=== PATIENT | male | born 1955 | race Hispanic/Latino ===

== ENCOUNTER 2021-01-03 03:37 | Emergency (ER) | payer BC ==
[~2021-01-03] VITALS: Ht 165.1 cm; Wt 80.7 kg
[2021-01-03] MEDS ORDERED: SODIUM CHLORIDE 0.9% 1000ML 1,000 ML IV STA (03:57)
[2021-01-03 04:24] LABS: BASOPHILS # (AUTO) 0.1 (0.0-0.1); BASOPHILS % 0.6 % (0.0-1.0); EOSINOPHILS # (AUTO) 0.1 (0.0-0.4); EOSINOPHILS % 0.7 % (0.0-6.0); HEMOGLOBIN 13.6 g/dL (14.0-18.0); LYMPHOCYTES # (AUTO) 1.5 (1.0-3.2); LYMPHOCYTES % 12.7 % (18.0-39.1); MEAN CORPUSCULAR HEMOGLOBIN 31.3 pg (28-32); MEAN CORPUSCULAR HGB CONC 33.2 g/dL (31-35); MEAN CORPUSCULAR VOLUME 94.5 fL (81-99); MONOCYTES # (AUTO) 0.5 (0.2-0.8); MONOCYTES % 3.9 % (4.4-11.3); NEUTROPHILS # (AUTO) 9.8 (2.1-6.9); NEUTROPHILS % 81.7 % (38.7-80.0); PLATELET COUNT 274 x10e3/uL (140-360); RED BLOOD COUNT 4.34 x10e6/uL (4.3-5.7); RED CELL DISTRIBUTION WIDTH 15.2 % (11.7-14.4)
[2021-01-03 04:37] LABS: ALANINE AMINOTRANSFERASE 30 IU/L (0-55); ALBUMIN 3.2 g/dL (3.5-5.0); ALBUMIN/GLOBULIN RATIO 0.7 (0.8-2.0); ALKALINE PHOSPHATASE 107 IU/L (40-150); ANION GAP 18.1 mmol/L (8-16); BLOOD UREA NITROGEN < 5 mg/dL (7-26); CARBON DIOXIDE 21 mmol/L (22-29); CHLORIDE 99 mmol/L (98-107); CREATININE, SERUM 0.76 mg/dL (0.72-1.25); EST GLOMERULAR FILTRATION RATE 103 ML/MIN (60-); GLUCOSE 189 mg/dL (74-118); POTASSIUM 4.1 mmol/L (3.5-5.1); SODIUM 134 mmol/L (136-145)
[2021-01-03 04:53] LABS: BUN/CREATININE RATIO 7 (6-25)
[2021-01-03] MEDS ORDERED: CASIRIVIMAB/IMDEVIMAB 10 ML in SODIUM CHLORIDE 0.9% 100 ML IV ONE (05:30)
[2021-01-03] MEDS ORDERED: PROAIR HFA INH8.5 GM IH (06:07)
== END 2021-01-03 06:26 | disposition home or self-care (01) ==
LOC: ER 03:50
DX: U07.1 COVID-19 (principal); Z88.0 Allergy status to penicillin; E66.9 Obesity, unspecified; Z68.29 Body mass index [BMI] 29.0-29.9, adult
CPT/HCPCS: 36415; 71045; 80053; 83518; 85025; 87070; 87400; 99284; J7030; J7050; U0002

== ENCOUNTER 2021-02-12 18:06 | Inpatient (IN) | payer BC ==
[~2021-02-12] VITALS: Ht 165.1 cm; Wt 76.2 kg
[~2021-02-12 18:06] MED LIST: PROAIR HFA INH8.5 GM IH
[2021-02-12] MEDS ORDERED: SODIUM CHLORIDE 0.9% 1000ML 1,000 ML IV STA (18:13)
[2021-02-12 18:26] LABS: BASOPHILS % 0.3 % (0.0-1.0); EOSINOPHILS % 0.1 % (0.0-6.0); HEMATOCRIT 45.3 % (38.2-49.6); HEMOGLOBIN 15.7 g/dL (14.0-18.0); LYMPHOCYTES % 17.1 % (18.0-39.1); MEAN CORPUSCULAR HEMOGLOBIN 31.4 pg (28-32); MEAN CORPUSCULAR HGB CONC 34.7 g/dL (31-35); MEAN CORPUSCULAR VOLUME 90.6 fL (81-99); MONOCYTES # (AUTO) 1.1 (0.2-0.8); MONOCYTES % 9.7 % (4.4-11.3); NEUTROPHILS # (AUTO) 8.5 (2.1-6.9); NEUTROPHILS % 72.5 % (38.7-80.0); PLATELET COUNT 233 x10e3/uL (140-360); RED CELL DISTRIBUTION WIDTH 12.1 % (11.7-14.4)
[2021-02-12 18:43] LABS: ALBUMIN 3.2 g/dL (3.5-5.0); ALBUMIN/GLOBULIN RATIO 0.6 (0.8-2.0); ANION GAP 19.9 mmol/L (8-16); CALCIUM 8.4 mg/dL (8.4-10.2); CREATININE, SERUM 0.83 mg/dL (0.72-1.25); POTASSIUM 3.9 mmol/L (3.5-5.1)
[2021-02-12 18:49] LABS: CREATINE KINASE MB 4.7 ng/mL (0-5.0)
[2021-02-12] MEDS ORDERED: ONDANSETRON HCL INJ 2MG/ML 2ML 2 MG/ML VIAL IV PRN (19:30)
[2021-02-12] MEDS ORDERED: Morphine 4mg Syringe 4 MG/ML INJ IV PRN (19:45)
[2021-02-12 21:30] VITALS: BP 128/73
[2021-02-12 23:00] VITALS: BP 132/62
[2021-02-12] MEDS: SODIUM CHLORIDE 0.9% 1000ML 1,000 ML IV SCH (23:42)
[2021-02-12] MEDS ORDERED: THIAMINE HCL INJ 100 MG/ML 2ML VIAL IM ONE (23:45)
[2021-02-13 00:06] VITALS: BP 128/84
[2021-02-13] MEDS: CHLORDIAZEPOXIDE HCL 25 MG CAP PO SCH ×4 (00:26→17:11)
[2021-02-13 02:12] LABS: CREATINE KINASE MB 7.4 ng/mL (0-5.0)
[2021-02-13] MEDS: SODIUM CHLORIDE 0.9% 1000ML 1,000 ML IV SCH ×2 (03:49→09:17)
[2021-02-13 04:00] VITALS: BP 143/90
[2021-02-13] MEDS ORDERED: PREDNISONE20 MG PO (04:09)
[2021-02-13] MEDS ORDERED: LISINOPRIL-HCT1 EAC2 PO (04:09)
[2021-02-13] MEDS ORDERED: PREDNISONE10 MG PO (04:09)
[2021-02-13] MEDS ORDERED: METFORMIN HCL1000 MG PO (04:09)
[2021-02-13] MEDS ORDERED: SIMVASTATIN40 MG PO (04:09)
[2021-02-13 05:22] LABS: BASOPHILS % 0.4 % (0.0-1.0); EOSINOPHILS # (AUTO) 0.1 (0.0-0.4); EOSINOPHILS % 1.5 % (0.0-6.0); HEMOGLOBIN 14.2 g/dL (14.0-18.0); LYMPHOCYTES # (AUTO) 1.2 (1.0-3.2); LYMPHOCYTES % 16.4 % (18.0-39.1); MEAN CORPUSCULAR HEMOGLOBIN 31.6 pg (28-32); MEAN CORPUSCULAR HGB CONC 34.6 g/dL (31-35); MEAN CORPUSCULAR VOLUME 91.3 fL (81-99); MONOCYTES # (AUTO) 1.1 (0.2-0.8); MONOCYTES % 14.3 % (4.4-11.3); NEUTROPHILS # (AUTO) 5.1 (2.1-6.9); NEUTROPHILS % 66.7 % (38.7-80.0); PLATELET COUNT 211 x10e3/uL (140-360); RED BLOOD COUNT 4.49 x10e6/uL (4.3-5.7); RED CELL DISTRIBUTION WIDTH 12.2 % (11.7-14.4)
[2021-02-13 05:50] LABS: CREATINE KINASE MB 6.4 ng/mL (0-5.0)
[2021-02-13 06:05] LABS: ALBUMIN 2.7 g/dL (3.5-5.0); ALBUMIN/GLOBULIN RATIO 0.6 (0.8-2.0); ANION GAP 14.6 mmol/L (8-16); CALCIUM 7.8 mg/dL (8.4-10.2); CREATININE, SERUM 0.73 mg/dL (0.72-1.25); POTASSIUM 3.6 mmol/L (3.5-5.1)
[2021-02-13 07:50] VITALS: BP 141/91
[2021-02-13 11:07] VITALS: BP 138/83
[2021-02-13 13:12] LABS: CHOL/HDL RATIO 1.6 (3.9-4.7)
[2021-02-13 14:28] LABS: CREATINE KINASE MB 3.6 ng/mL (0-5.0)
[2021-02-13 15:42] VITALS: BP 153/84
[2021-02-13] MEDS ORDERED: ONDANSETRON HCL 4 MG ORAL DISINTEGRATING TAB PO PRN (17:00)
[2021-02-13 20:00] VITALS: BP_SYST 146; BP_SYST 153; BP_DIAS 82; BP_DIAS 84
[2021-02-14] VITALS: BP 143/96
[2021-02-14 04:00] VITALS: BP 137/92
[2021-02-14 05:30] LABS: ANION GAP 14.9 mmol/L (8-16); BLOOD UREA NITROGEN < 5 mg/dL (7-26); CALCIUM 7.8 mg/dL (8.4-10.2); CARBON DIOXIDE 21 mmol/L (22-29); CHLORIDE 100 mmol/L (98-107); CREATININE, SERUM 0.64 mg/dL (0.72-1.25); EST GLOMERULAR FILTRATION RATE 126 ML/MIN (60-); GLUCOSE 105 mg/dL (74-118); SODIUM 133 mmol/L (136-145)
[2021-02-14] MEDS: CHLORDIAZEPOXIDE HCL 25 MG CAP PO SCH ×3 (05:53→12:19)
[2021-02-14 05:55] LABS: BUN/CREATININE RATIO 8 (6-25)
[2021-02-14 05:56] LABS: POTASSIUM 2.9 mmol/L (3.5-5.1)
[2021-02-14] MEDS ORDERED: POTASSIUM CHLORIDE 20 MEQ TAB CR PO STA (06:02)
[2021-02-14 08:00] VITALS: BP 150/91
[2021-02-14 08:05] VITALS: BP 150/91
[2021-02-14] MEDS ORDERED: POTASSIUM CHLORIDE 20 MEQ TAB CR PO ONE (08:30)
[2021-02-14] MEDS ORDERED: METOPROLOL SUCCINATE 25 MG TAB XL PO SCH (09:45)
[2021-02-14 11:58] VITALS: BP 140/94
[2021-02-14] MEDS ORDERED: TOPROL XL25 MG PO (14:25)
[2021-02-14 15:44] VITALS: BP 126/82
[2021-02-14] MEDS ORDERED: SIMVASTATIN 40 MG TAB PO SCH (21:00)
== END 2021-02-14 16:05 | disposition home or self-care (01) | DRG 641 ==
LOC: ER 18:11 → ERHOLD 19:25 → MED/SURG 20:47
PROVIDERS: ADMIT Internal Medicine; ATTEND Internal Medicine
DX: E87.1 Hypo-osmolality and hyponatremia (principal); F10.130 Alcohol abuse with withdrawal, uncomplicated; R07.9 Chest pain, unspecified; R53.1 Weakness; R51.9 Headache, unspecified; E11.9 Type 2 diabetes mellitus without complications; I10 Essential (primary) hypertension; Z88.0 Allergy status to penicillin; Z20.822 Contact with and (suspected) exposure to COVID-19; R07.89 Other chest pain; E66.01 Morbid (severe) obesity due to excess calories; F10.11 Alcohol abuse, in remission; E87.6 Hypokalemia; Z68.28 Body mass index [BMI] 28.0-28.9, adult; Z79.4 Long term (current) use of insulin
CPT/HCPCS: 36415; 70450; 71045; 80048; 80053; 80061; 82550; 82553; 82948; 83036; 83880; 84132; 84295; 84484; 85025; 93005; 93306; 94799; 99284; J3411; J7030; U0002

== ENCOUNTER 2021-03-09 08:06 | Inpatient (IN) | payer BC ==
[~2021-03-09] VITALS: Ht 165.1 cm; Wt 76.2 kg
[~2021-03-09 08:06] MED LIST changes: +LISINOPRIL-HCT1 EAC2 PO; +METFORMIN HCL1000 MG PO; +PREDNISONE10 MG PO; +PREDNISONE20 MG PO; +SIMVASTATIN40 MG PO; +TOPROL XL25 MG PO
[2021-03-09] MEDS ORDERED: Morphine 4mg Syringe 4 MG/ML INJ IV ONE (08:22)
[2021-03-09] MEDS ORDERED: ONDANSETRON HCL INJ 2MG/ML 2ML 2 MG/ML VIAL IV ONE (08:22)
[2021-03-09] MEDS ORDERED: SODIUM CHLORIDE 0.9% 1000ML 1,000 ML IV STA ×2 (08:22→10:13)
[2021-03-09 08:46] LABS: BASOPHILS % 0.2 % (0.0-1.0); EOSINOPHILS % 0.2 % (0.0-6.0); HEMATOCRIT 42.1 % (38.2-49.6); HEMOGLOBIN 14.4 g/dL (14.0-18.0); LYMPHOCYTES # (AUTO) 1.4 (1.0-3.2); LYMPHOCYTES % 8.9 % (18.0-39.1); MEAN CORPUSCULAR HEMOGLOBIN 31.2 pg (28-32); MEAN CORPUSCULAR HGB CONC 34.2 g/dL (31-35); MEAN CORPUSCULAR VOLUME 91.3 fL (81-99); MONOCYTES # (AUTO) 1.3 (0.2-0.8); MONOCYTES % 8.7 % (4.4-11.3); NEUTROPHILS # (AUTO) 12.3 (2.1-6.9); NEUTROPHILS % 81.5 % (38.7-80.0); PLATELET COUNT 216 x10e3/uL (140-360); RED BLOOD COUNT 4.61 x10e6/uL (4.3-5.7); RED CELL DISTRIBUTION WIDTH 12.1 % (11.7-14.4)
[2021-03-09 09:00] LABS: CLARITY,URINE CLEAR (CLEAR); COLOR,URINE YELLOW (YELLOW); INR 0.96; KETONES,URINE TRACE (NEGATIVE); LEUKOCYTE ESTERASE ,URINE NEGATIVE (NEGATIVE); NITRITE,URINE NEGATIVE (NEGATIVE); PROTEIN,URINE DIPSTICK 1+ (NEGATIVE); PROTHROMBIN TIME 13.6 seconds (11.9-14.5); URINE UROBILINOGEN 0.2 mg/dL (0.2 - 1)
[2021-03-09 09:01] LABS: PARTIAL THROMBOPLASTIN TIME 28.1 seconds (23.8-35.5)
[2021-03-09 09:10] LABS: RBC,URINE 0-5 /HPF (0-5); WBC,URINE (MAN) 0-5 /HPF (0-5)
[2021-03-09 09:11] LABS: ALBUMIN 2.9 g/dL (3.5-5.0); ALBUMIN/GLOBULIN RATIO 0.6 (0.8-2.0); ANION GAP 17.4 mmol/L (8-16); CALCIUM 8.4 mg/dL (8.4-10.2); CREATININE, SERUM 0.89 mg/dL (0.72-1.25); MAGNESIUM 1.5 MG/DL (1.3-2.1); POTASSIUM 3.4 mmol/L (3.5-5.1)
[2021-03-09 09:17] LABS: CREATINE KINASE MB 0.7 ng/mL (0-5.0)
[2021-03-09] MEDS ORDERED: PIPERACILLIN/TAZOBACTAM 3.375 GM in SODIUM CHLORIDE 0.9% 50ML 50 ML IV ONE (10:15)
[2021-03-09] MEDS ORDERED: LEVOFLOXACIN 500MG/D5W 100ML 100 ML IV ONE (10:30)
[2021-03-09] MEDS ORDERED: SODIUM CHLORIDE 0.9% 50ML 50 ML ONE (10:33)
[2021-03-09] MEDS ORDERED: IOPAMIDOL 370 MG/ML 200 ML INFUS..BTL INJ ONE (10:33)
[2021-03-09 10:46] LABS: BAND NEUTROPHILS % (MANUAL) 3 %; LYMPHOCYTES % (MANUAL) 5 % (19-48); MONOCYTES % (MANUAL) 4 % (3.4-9.0); NEUTROPHILS % (MANUAL) 81 % (40-74); PLATELET ESTIMATE ADEQUATE; PLATELET MORPHOLOGY COMMENT NORMAL; RBC MORPHOLOGY COMMENT NORMAL
[2021-03-09] MEDS ORDERED: METHYLPREDNISOLONE SOD SUCC 125 MG/2ML VIAL IV STA (12:10)
[2021-03-09] MEDS ORDERED: METRONIDAZOLE 500MG/NS 100ML 100 ML IV SCH (12:15)
[2021-03-09] MEDS: KCL 20MEQ/.9 SOD CHL 1,000 ML IV SCH ×2 (13:40→20:44)
[2021-03-09] MEDS: METRONIDAZOLE 500 MG TAB PO SCH ×2 (14:04→20:35)
[2021-03-09 16:00] VITALS: BP 137/75
[2021-03-09 17:35] VITALS: BP 137/75
[2021-03-09 20:09] VITALS: BP 104/67
[2021-03-09 20:30] VITALS: BP 104/67
[2021-03-10] VITALS (10 sets, daily range): BP systolic 124–163; BP diastolic 74–92
[2021-03-10] MEDS: METRONIDAZOLE 500 MG TAB PO SCH ×5 (00:45→23:30)
[2021-03-10] MEDS ORDERED: METHYLPREDNISOLONE SOD SUCC 40 MG/ML VIAL 1ML IV STA (01:10)
[2021-03-10] MEDS ORDERED: MESALAMINE 400 MG CAP PO STA (01:17)
[2021-03-10 05:00] LABS: BASOPHILS % 0.2 % (0.0-1.0); HEMATOCRIT 34.9 % (38.2-49.6); HEMOGLOBIN 12.1 g/dL (14.0-18.0); LYMPHOCYTES # (AUTO) 0.7 (1.0-3.2); LYMPHOCYTES % 7.9 % (18.0-39.1); MEAN CORPUSCULAR HEMOGLOBIN 31.2 pg (28-32); MEAN CORPUSCULAR HGB CONC 34.7 g/dL (31-35); MEAN CORPUSCULAR VOLUME 89.9 fL (81-99); MONOCYTES # (AUTO) 0.6 (0.2-0.8); MONOCYTES % 6.4 % (4.4-11.3); NEUTROPHILS # (AUTO) 7.5 (2.1-6.9); PLATELET COUNT 184 x10e3/uL (140-360); RED BLOOD COUNT 3.88 x10e6/uL (4.3-5.7); RED CELL DISTRIBUTION WIDTH 12.2 % (11.7-14.4)
[2021-03-10 05:21] LABS: ALBUMIN 2.4 g/dL (3.5-5.0); ALBUMIN/GLOBULIN RATIO 0.6 (0.8-2.0); ANION GAP 11.5 mmol/L (8-16); CALCIUM 7.6 mg/dL (8.4-10.2); CREATININE, SERUM 0.68 mg/dL (0.72-1.25); POTASSIUM 3.5 mmol/L (3.5-5.1)
[2021-03-10] MEDS: METHYLPREDNISOLONE SOD SUCC 40 MG/ML VIAL 1ML IV SCH ×4 (06:39→23:30)
[2021-03-10] MEDS: METOPROLOL SUCCINATE 25 MG TAB XL PO SCH (09:00)
[2021-03-10] MEDS: LEVOFLOXACIN 500MG/D5W 100ML 100 ML IV SCH (09:00)
[2021-03-10] MEDS: MESALAMINE 400 MG CAP PO SCH ×2 (09:00→16:56)
[2021-03-10 09:13] LABS: OCCULT BLOOD STOOL POSITIVE (NEGATIVE)
[2021-03-10] MEDS: Morphine 2mg Syringe 2 MG/ML SYR IV PRN ×2 (10:48→20:30)
[2021-03-10] MEDS: ONDANSETRON HCL INJ 2MG/ML 2ML 2 MG/ML VIAL IV PRN ×2 (10:49→20:30)
[2021-03-10] MEDS: CHOLECALCIFEROL 400 UNIT TAB PO SCH (13:15)
[2021-03-10] MEDS ORDERED: AMLODIPINE BESYLATE 5 MG TAB PO ONE (13:30)
[2021-03-10 14:02] LABS: C DIFFICILE TOXIN A&B AMP PROB NEGATIVE (NEGATIVE)
[2021-03-10] MEDS: METFORMIN HCL 500 MG TAB PO SCH (16:56)
[2021-03-10] MEDS: ZINC SULFATE 220 MG CAP PO SCH (16:56)
[2021-03-11 04:00] VITALS: BP 154/78
[2021-03-11] MEDS: METHYLPREDNISOLONE SOD SUCC 40 MG/ML VIAL 1ML IV SCH ×4 (06:00→23:13)
[2021-03-11] MEDS: METRONIDAZOLE 500 MG TAB PO SCH ×4 (06:41→23:13)
[2021-03-11 07:31] VITALS: BP 164/86
[2021-03-11 08:00] VITALS: BP 164/86
[2021-03-11] MEDS: METFORMIN HCL 500 MG TAB PO SCH ×3 (08:35→16:45)
[2021-03-11] MEDS: AMLODIPINE BESYLATE 5 MG TAB PO SCH (08:35)
[2021-03-11] MEDS: MESALAMINE 400 MG CAP PO SCH ×2 (08:35→16:48)
[2021-03-11] MEDS: ZINC SULFATE 220 MG CAP PO SCH ×2 (08:36→16:48)
[2021-03-11] MEDS: CHOLECALCIFEROL 400 UNIT TAB PO SCH (08:36)
[2021-03-11] MEDS: ASCORBIC ACID 500 MG TAB PO SCH (08:36)
[2021-03-11] MEDS: METOPROLOL SUCCINATE 25 MG TAB XL PO SCH (08:36)
[2021-03-11] MEDS: LEVOFLOXACIN 500MG/D5W 100ML 100 ML IV SCH (08:48)
[2021-03-11] MEDS ORDERED: SODIUM CHLORIDE 0.9% 250ML 250 ML ONE (08:51)
[2021-03-11 11:26] VITALS: BP 123/77
[2021-03-11] MEDS ORDERED: ALBUTEROL SULFATE HFA 8GM INHALATION AEROSOL INH PRN (12:15)
[2021-03-11] MEDS ORDERED: METFORMIN HCL 500 MG TAB CR PO ONE (12:30)
[2021-03-11] MEDS ORDERED: ONDANSETRON HCL 4 MG ORAL DISINTEGRATING TAB PO PRN (15:15)
[2021-03-11 15:26] VITALS: BP 117/77
[2021-03-11] MEDS ORDERED: ACETAMINOPHEN 325 MG TAB PO PRN (17:15)
[2021-03-11 20:18] VITALS: BP 126/84
[2021-03-11] MEDS: Morphine 2mg Syringe 2 MG/ML SYR IV PRN (21:00)
[2021-03-11] MEDS: SIMVASTATIN 40 MG TAB PO SCH (21:05)
[2021-03-12] VITALS (8 sets, daily range): BP systolic 113–159; BP diastolic 77–88
[2021-03-12] MEDS: METHYLPREDNISOLONE SOD SUCC 40 MG/ML VIAL 1ML IV SCH ×3 (05:09→20:36)
[2021-03-12] MEDS: METRONIDAZOLE 500 MG TAB PO SCH ×3 (05:09→18:07)
[2021-03-12 05:46] LABS: HEMATOCRIT 38.4 % (38.2-49.6); LYMPHOCYTES # (AUTO) 0.7 (1.0-3.2); LYMPHOCYTES % 9.2 % (18.0-39.1); MEAN CORPUSCULAR HEMOGLOBIN 31.1 pg (28-32); MEAN CORPUSCULAR HGB CONC 33.9 g/dL (31-35); MEAN CORPUSCULAR VOLUME 91.9 fL (81-99); MONOCYTES # (AUTO) 0.2 (0.2-0.8); MONOCYTES % 2.9 % (4.4-11.3); NEUTROPHILS # (AUTO) 6.4 (2.1-6.9); NEUTROPHILS % 87.4 % (38.7-80.0); PLATELET COUNT 252 x10e3/uL (140-360); RED BLOOD COUNT 4.18 x10e6/uL (4.3-5.7); RED CELL DISTRIBUTION WIDTH 12.1 % (11.7-14.4)
[2021-03-12 06:15] LABS: ALBUMIN 2.6 g/dL (3.5-5.0); ALBUMIN/GLOBULIN RATIO 0.6 (0.8-2.0); CALCIUM 7.9 mg/dL (8.4-10.2); CREATININE, SERUM 0.81 mg/dL (0.72-1.25); MAGNESIUM 1.6 MG/DL (1.3-2.1); PHOSPHORUS 2.7 MG/DL (2.3-4.7)
[2021-03-12] MEDS ORDERED: POTASSIUM CHLORIDE 20 MEQ TAB CR PO STA (07:49)
[2021-03-12] MEDS ORDERED: MAGNESIUM SULFATE 2GM/50ML 50 ML IV ONE ×2 (08:00→23:15)
[2021-03-12] MEDS ORDERED: MAGNESIUM SULF 1GRAM/DEXTROSE 100 ML IV ONE (08:00)
[2021-03-12] MEDS: METFORMIN HCL 500 MG TAB PO SCH ×2 (08:00→18:00)
[2021-03-12] MEDS: CHOLECALCIFEROL 400 UNIT TAB PO SCH (09:00)
[2021-03-12] MEDS: AMLODIPINE BESYLATE 5 MG TAB PO SCH (09:00)
[2021-03-12] MEDS: METOPROLOL SUCCINATE 25 MG TAB XL PO SCH (09:00)
[2021-03-12] MEDS: ASCORBIC ACID 500 MG TAB PO SCH (09:00)
[2021-03-12] MEDS: ZINC SULFATE 220 MG CAP PO SCH ×2 (09:00→18:21)
[2021-03-12] MEDS: MESALAMINE 400 MG CAP PO SCH ×2 (09:00→18:00)
[2021-03-12] MEDS: LEVOFLOXACIN 500 MG TAB PO SCH (09:00)
[2021-03-12] MEDS ORDERED: SODIUM CHLORIDE 0.9% 50ML 50 ML ONE (12:53)
[2021-03-12] MEDS ORDERED: POTASSIUM CHLORIDE 20 MEQ TAB CR PO ONE (16:39)
[2021-03-12] MEDS: LOPERAMIDE HCL 2 MG CAP PO PRN (20:25)
[2021-03-12] MEDS: SIMVASTATIN 40 MG TAB PO SCH (20:25)
[2021-03-12] MEDS ORDERED: LOPERAMIDE HCL 2 MG CAP PO PRN (20:30)
[2021-03-13] VITALS (9 sets, daily range): BP systolic 113–163; BP diastolic 71–84
[2021-03-13] MEDS: METRONIDAZOLE 500 MG TAB PO SCH ×5 (02:19→23:34)
[2021-03-13 05:37] LABS: BASOPHILS % 0.1 % (0.0-1.0); HEMATOCRIT 35.6 % (38.2-49.6); HEMOGLOBIN 12.1 g/dL (14.0-18.0); LYMPHOCYTES # (AUTO) 1.1 (1.0-3.2); LYMPHOCYTES % 12.3 % (18.0-39.1); MEAN CORPUSCULAR HEMOGLOBIN 31.3 pg (28-32); MEAN CORPUSCULAR VOLUME 92.2 fL (81-99); MONOCYTES # (AUTO) 0.8 (0.2-0.8); MONOCYTES % 9.4 % (4.4-11.3); NEUTROPHILS # (AUTO) 6.6 (2.1-6.9); NEUTROPHILS % 77.7 % (38.7-80.0); PLATELET COUNT 272 x10e3/uL (140-360); RED BLOOD COUNT 3.86 x10e6/uL (4.3-5.7); RED CELL DISTRIBUTION WIDTH 12.1 % (11.7-14.4)
[2021-03-13] MEDS: METHYLPREDNISOLONE SOD SUCC 40 MG/ML VIAL 1ML IV SCH ×2 (06:00→15:17)
[2021-03-13 06:02] LABS: ALBUMIN 2.4 g/dL (3.5-5.0); ALBUMIN/GLOBULIN RATIO 0.7 (0.8-2.0); CALCIUM 7.9 mg/dL (8.4-10.2); CREATININE, SERUM 0.74 mg/dL (0.72-1.25); MAGNESIUM 1.8 MG/DL (1.3-2.1); PHOSPHORUS 2.2 MG/DL (2.3-4.7)
[2021-03-13] MEDS: METOPROLOL SUCCINATE 25 MG TAB XL PO SCH (09:00)
[2021-03-13] MEDS: METFORMIN HCL 500 MG TAB PO SCH ×2 (09:18→17:27)
[2021-03-13] MEDS: LEVOFLOXACIN 500 MG TAB PO SCH (09:18)
[2021-03-13] MEDS: AMLODIPINE BESYLATE 5 MG TAB PO SCH (09:19)
[2021-03-13] MEDS: ASCORBIC ACID 500 MG TAB PO SCH (09:19)
[2021-03-13] MEDS: ZINC SULFATE 220 MG CAP PO SCH ×2 (09:20→17:27)
[2021-03-13] MEDS: CHOLECALCIFEROL 400 UNIT TAB PO SCH (09:20)
[2021-03-13] MEDS: GLIMEPIRIDE 2 MG TAB PO SCH (09:22)
[2021-03-13] MEDS ORDERED: POTASSIUM CHLORIDE 20 MEQ TAB CR PO STA (11:10)
[2021-03-13] MEDS: MESALAMINE 400 MG CAP PO SCH ×2 (12:05→17:29)
[2021-03-13] MEDS: SIMVASTATIN 40 MG TAB PO SCH (21:23)
[2021-03-13] MEDS: LOPERAMIDE HCL 2 MG CAP PO PRN (21:50)
[2021-03-14] VITALS: BP 155/79
[2021-03-14 04:00] VITALS: BP 146/80
[2021-03-14 05:22] LABS: BASOPHILS % 0.2 % (0.0-1.0); EOSINOPHILS % 0.2 % (0.0-6.0); HEMATOCRIT 37.5 % (38.2-49.6); HEMOGLOBIN 12.7 g/dL (14.0-18.0); LYMPHOCYTES % 21.1 % (18.0-39.1); MEAN CORPUSCULAR HEMOGLOBIN 31.5 pg (28-32); MEAN CORPUSCULAR HGB CONC 33.9 g/dL (31-35); MEAN CORPUSCULAR VOLUME 93.1 fL (81-99); MONOCYTES # (AUTO) 1.1 (0.2-0.8); MONOCYTES % 11.2 % (4.4-11.3); NEUTROPHILS # (AUTO) 6.2 (2.1-6.9); PLATELET COUNT 272 x10e3/uL (140-360); RED BLOOD COUNT 4.03 x10e6/uL (4.3-5.7); RED CELL DISTRIBUTION WIDTH 12.3 % (11.7-14.4)
[2021-03-14] MEDS: METRONIDAZOLE 500 MG TAB PO SCH ×3 (05:28→16:31)
[2021-03-14 06:03] LABS: ANION GAP 9.9 mmol/L (8-16); CALCIUM 8.8 mg/dL (8.4-10.2); CREATININE, SERUM 0.67 mg/dL (0.72-1.25)
[2021-03-14 06:25] LABS: POTASSIUM 2.9 mmol/L (3.5-5.1)
[2021-03-14 07:51] VITALS: BP 155/83
[2021-03-14] MEDS ORDERED: POTASSIUM CHLORIDE 20MEQ/100ML 300 ML IV ONE ×2 (09:00→10:00)
[2021-03-14] MEDS: METOPROLOL SUCCINATE 25 MG TAB XL PO SCH (09:00)
[2021-03-14] MEDS: PANTOPRAZOLE SOD 40 MG TABEC PO SCH (09:52)
[2021-03-14] MEDS: METFORMIN HCL 500 MG TAB PO SCH ×2 (09:53→16:31)
[2021-03-14] MEDS: GLIMEPIRIDE 2 MG TAB PO SCH (09:53)
[2021-03-14] MEDS: LEVOFLOXACIN 500 MG TAB PO SCH (09:53)
[2021-03-14] MEDS: PREDNISONE 20 MG TAB PO SCH (09:54)
[2021-03-14] MEDS: AMLODIPINE BESYLATE 5 MG TAB PO SCH (09:54)
[2021-03-14] MEDS: MESALAMINE 400 MG CAP PO SCH ×2 (09:54→16:31)
[2021-03-14] MEDS: ASCORBIC ACID 500 MG TAB PO SCH (09:54)
[2021-03-14] MEDS: CHOLECALCIFEROL 400 UNIT TAB PO SCH (09:55)
[2021-03-14] MEDS: ZINC SULFATE 220 MG CAP PO SCH ×2 (09:55→16:31)
[2021-03-14 11:42] VITALS: BP 124/81
[2021-03-14] MEDS ORDERED: SODIUM CHLORIDE 0.9% 1000ML 1,000 ML ONE (15:10)
[2021-03-14] MEDS ORDERED: POTASSIUM CHLORIDE 20 MEQ TAB CR PO ONE (16:00)
[2021-03-14 16:04] VITALS: BP 108/73
[2021-03-14 20:00] VITALS: BP_SYST 108; BP_SYST 122; BP_DIAS 73; BP_DIAS 78
[2021-03-14] MEDS: SIMVASTATIN 40 MG TAB PO SCH (21:37)
[2021-03-15] VITALS (7 sets, daily range): BP systolic 108–161; BP diastolic 79–97
[2021-03-15] MEDS: METRONIDAZOLE 500 MG TAB PO SCH ×5 (05:17→23:20)
[2021-03-15 05:38] LABS: BASOPHILS % 0.3 % (0.0-1.0); EOSINOPHILS # (AUTO) 0.1 (0.0-0.4); EOSINOPHILS % 1.1 % (0.0-6.0); HEMATOCRIT 39.7 % (38.2-49.6); HEMOGLOBIN 13.1 g/dL (14.0-18.0); LYMPHOCYTES # (AUTO) 2.4 (1.0-3.2); LYMPHOCYTES % 21.7 % (18.0-39.1); MEAN CORPUSCULAR HEMOGLOBIN 30.9 pg (28-32); MEAN CORPUSCULAR VOLUME 93.6 fL (81-99); MONOCYTES # (AUTO) 1.4 (0.2-0.8); MONOCYTES % 12.8 % (4.4-11.3); NEUTROPHILS # (AUTO) 6.8 (2.1-6.9); NEUTROPHILS % 61.7 % (38.7-80.0); PLATELET COUNT 296 x10e3/uL (140-360); RED BLOOD COUNT 4.24 x10e6/uL (4.3-5.7); RED CELL DISTRIBUTION WIDTH 12.6 % (11.7-14.4)
[2021-03-15 06:02] LABS: ANION GAP 11.5 mmol/L (8-16); CALCIUM 9.1 mg/dL (8.4-10.2); CREATININE, SERUM 0.69 mg/dL (0.72-1.25); MAGNESIUM 1.4 MG/DL (1.3-2.1); PHOSPHORUS 2.7 MG/DL (2.3-4.7); POTASSIUM 3.5 mmol/L (3.5-5.1)
[2021-03-15] MEDS: PANTOPRAZOLE SOD 40 MG TABEC PO SCH (07:30)
[2021-03-15] MEDS: GLIMEPIRIDE 2 MG TAB PO SCH (08:00)
[2021-03-15] MEDS: METFORMIN HCL 500 MG TAB PO SCH ×2 (08:00→17:00)
[2021-03-15] MEDS: ZINC SULFATE 220 MG CAP PO SCH ×2 (09:00→17:00)
[2021-03-15] MEDS: MESALAMINE 400 MG CAP PO SCH ×2 (09:00→17:00)
[2021-03-15] MEDS: AMLODIPINE BESYLATE 5 MG TAB PO SCH (09:00)
[2021-03-15] MEDS: ASCORBIC ACID 500 MG TAB PO SCH (09:00)
[2021-03-15] MEDS: CHOLECALCIFEROL 400 UNIT TAB PO SCH (09:00)
[2021-03-15] MEDS: METOPROLOL SUCCINATE 25 MG TAB XL PO SCH (09:00)
[2021-03-15] MEDS: LEVOFLOXACIN 500 MG TAB PO SCH (09:00)
[2021-03-15] MEDS: PREDNISONE 20 MG TAB PO SCH (09:00)
[2021-03-15] MEDS: LOPERAMIDE HCL 2 MG CAP PO PRN (11:09)
[2021-03-15] MEDS: SIMVASTATIN 40 MG TAB PO SCH (21:24)
[2021-03-16] VITALS: BP 134/79
[2021-03-16 04:00] VITALS: BP 136/94
[2021-03-16] MEDS: METRONIDAZOLE 500 MG TAB PO SCH (05:44)
[2021-03-16 05:55] LABS: BASOPHILS % 0.2 % (0.0-1.0); EOSINOPHILS # (AUTO) 0.1 (0.0-0.4); HEMATOCRIT 39.7 % (38.2-49.6); HEMOGLOBIN 13.7 g/dL (14.0-18.0); LYMPHOCYTES # (AUTO) 2.7 (1.0-3.2); LYMPHOCYTES % 20.5 % (18.0-39.1); MEAN CORPUSCULAR HEMOGLOBIN 31.4 pg (28-32); MEAN CORPUSCULAR HGB CONC 34.5 g/dL (31-35); MEAN CORPUSCULAR VOLUME 91.1 fL (81-99); MONOCYTES # (AUTO) 1.5 (0.2-0.8); MONOCYTES % 11.2 % (4.4-11.3); NEUTROPHILS # (AUTO) 8.4 (2.1-6.9); NEUTROPHILS % 64.6 % (38.7-80.0); PLATELET COUNT 321 x10e3/uL (140-360); RED BLOOD COUNT 4.36 x10e6/uL (4.3-5.7); RED CELL DISTRIBUTION WIDTH 12.7 % (11.7-14.4)
[2021-03-16 06:27] LABS: ANION GAP 13.2 mmol/L (8-16); CREATININE, SERUM 0.63 mg/dL (0.72-1.25); MAGNESIUM 1.3 MG/DL (1.3-2.1); PHOSPHORUS 3.4 MG/DL (2.3-4.7); POTASSIUM 3.2 mmol/L (3.5-5.1)
[2021-03-16 07:27] VITALS: BP 134/80
[2021-03-16] MEDS: PANTOPRAZOLE SOD 40 MG TABEC PO SCH (07:30)
[2021-03-16] MEDS: METFORMIN HCL 500 MG TAB PO SCH (08:00)
[2021-03-16] MEDS: GLIMEPIRIDE 2 MG TAB PO SCH (08:00)
[2021-03-16] MEDS: ASCORBIC ACID 500 MG TAB PO SCH (09:00)
[2021-03-16] MEDS: PREDNISONE 20 MG TAB PO SCH (09:00)
[2021-03-16] MEDS: METOPROLOL SUCCINATE 25 MG TAB XL PO SCH (09:00)
[2021-03-16] MEDS: ZINC SULFATE 220 MG CAP PO SCH (09:00)
[2021-03-16] MEDS: CHOLECALCIFEROL 400 UNIT TAB PO SCH (09:00)
[2021-03-16] MEDS: MESALAMINE 400 MG CAP PO SCH (09:00)
[2021-03-16] MEDS: LEVOFLOXACIN 500 MG TAB PO SCH (09:00)
[2021-03-16] MEDS: AMLODIPINE BESYLATE 5 MG TAB PO SCH (09:00)
[2021-03-16] MEDS ORDERED: NORVASC5 MG PO (09:20)
[2021-03-16] MEDS ORDERED: AMARYL2 MG PO (09:20)
[2021-03-16] MEDS ORDERED: POTASSIUM CHLORIDE 20 MEQ TAB CR PO ONE (09:30)
[2021-03-16 09:37] VITALS: BP 134/80
[2021-03-16] MEDS ORDERED: Levofloxacin PO (10:15)
[2021-03-16] MEDS ORDERED: LEVOFLOXACIN250 MG PO (10:23)
[2021-03-16] MEDS ORDERED: PREDNISONE20 MG PO (11:17)
[2021-03-16 11:22] VITALS: BP 112/80
== END 2021-03-16 12:22 | disposition home or self-care (01) | DRG 386 ==
LOC: ER 08:14 → ERHOLD 12:47 → MED/SURG2 16:53 → MED/SURG 03-10 15:46
PROVIDERS: ADMIT Internal Medicine; ATTEND Internal Medicine
DX: K50.913 Crohn's disease, unspecified, with fistula (principal); E87.1 Hypo-osmolality and hyponatremia; K50.918 Crohn's disease, unspecified, with other complication; K40.20 Bilateral inguinal hernia, without obstruction or gangrene, not specified as recurrent; I10 Essential (primary) hypertension; E78.5 Hyperlipidemia, unspecified; F10.10 Alcohol abuse, uncomplicated; E87.6 Hypokalemia; R74.01 Elevation of levels of liver transaminase levels; E83.42 Hypomagnesemia; E11.69 Type 2 diabetes mellitus with other specified complication; F17.211 Nicotine dependence, cigarettes, in remission; Z79.84 Long term (current) use of oral hypoglycemic drugs; Z88.0 Allergy status to penicillin; Z20.822 Contact with and (suspected) exposure to COVID-19
CPT/HCPCS: 36415; 71045; 74177; 80048; 80053; 81001; 82270; 82550; 82553; 82948; 83605; 83630; 83690; 83735; 83993; 84100; 84132; 84484; 85025; 85610; 85651; 85730; 86141; 87040; 87045; 87086; 87177; 87328; 87493; 93005; 94799; 99284; J1956; J2270; J2405; J2920; J2930; J3475; J3480; J7030; J7050; J7512; Q0162; Q9967; U0002

== ENCOUNTER 2021-03-19 12:37 | Inpatient (IN) | payer SELFPAY ==
[~2021-03-19] VITALS: Ht 165.1 cm; Wt 76.2 kg
[~2021-03-19 12:37] MED LIST changes: +AMARYL2 MG PO; +DEXAMETHASONE SOD PHOS INJ 4 MG/ML SDV ONE; +KETOROLAC TROMETHAMINE 30 MG/ML VIAL ONE; +LEVOFLOXACIN250 MG PO; +LIDOCAINE HCL 2% LOCAL INJ 5 ML SDV VIAL INJ ONE; +Levofloxacin PO; +NORVASC5 MG PO; +ONDANSETRON HCL INJ 2MG/ML 2ML 2 MG/ML VIAL ONE; +POVIDONE IODINE 0.05% 0.05 % ML PO ONE; +PROPOFOL IV EMULSION 10 MG/ML 20 ML VIAL ONE; +ROCURONIUM BROMIDE 10 MG/ML 5ML VIAL IV ONE; +SEVOFLURANE INHAL SOLN 250 ML PEN BTL ONE; +SUCCINYLCHOLINE CHLORIDE 20 MG/ML 10ML VIAL ONE
[2021-03-19 14:08] LABS: BASOPHILS # (AUTO) 0.1 (0.0-0.1); BASOPHILS % 0.2 % (0.0-1.0); EOSINOPHILS # (AUTO) 0.1 (0.0-0.4); EOSINOPHILS % 0.4 % (0.0-6.0); HEMATOCRIT 48.1 % (38.2-49.6); HEMOGLOBIN 16.1 g/dL (14.0-18.0); LYMPHOCYTES % 4.5 % (18.0-39.1); MEAN CORPUSCULAR HEMOGLOBIN 30.9 pg (28-32); MEAN CORPUSCULAR HGB CONC 33.5 g/dL (31-35); MEAN CORPUSCULAR VOLUME 92.3 fL (81-99); MONOCYTES # (AUTO) 1.5 (0.2-0.8); MONOCYTES % 6.5 % (4.4-11.3); NEUTROPHILS # (AUTO) 20.1 (2.1-6.9); NEUTROPHILS % 87.6 % (38.7-80.0); PLATELET COUNT 418 x10e3/uL (140-360); RED BLOOD COUNT 5.21 x10e6/uL (4.3-5.7); RED CELL DISTRIBUTION WIDTH 13.2 % (11.7-14.4)
[2021-03-19 14:22] LABS: ALBUMIN 3.1 g/dL (3.5-5.0); ALBUMIN/GLOBULIN RATIO 0.7 (0.8-2.0); ANION GAP 16.7 mmol/L (8-16); CALCIUM 10.2 mg/dL (8.4-10.2); CREATININE, SERUM 0.96 mg/dL (0.72-1.25); POTASSIUM 4.7 mmol/L (3.5-5.1)
[2021-03-19] MEDS ORDERED: LACTATED RINGER'S 1,000 ML INJ ONE ×2 (14:45)
[2021-03-19] MEDS ORDERED: LACTATED RINGER'S 2,000 ML ONE (14:52)
[2021-03-19] MEDS ORDERED: METRONIDAZOLE 750MG/NS 150ML 150 ML IV SCH (15:00)
[2021-03-19] MEDS ORDERED: ONDANSETRON HCL INJ 2MG/ML 2ML 2 MG/ML VIAL IV PRN (15:00)
[2021-03-19] MEDS ORDERED: Morphine 4mg Syringe 4 MG/ML INJ IV PRN (15:00)
[2021-03-19] MEDS: CEFEPIME 1 GM in SODIUM CHLORIDE 0.9% 50ML 50 ML IV SCH ×2 (15:18→21:36)
[2021-03-19 17:01] VITALS: BP 112/76
[2021-03-19 17:03] VITALS: BP 112/76
[2021-03-19 17:32] VITALS: BP 112/76
[2021-03-19] MEDS: SODIUM CHLORIDE 0.9% 1000ML 1,000 ML IV SCH ×4 (18:15→22:41)
[2021-03-19] MEDS ORDERED: SODIUM CHLORIDE 0.9% 1000ML 1,000 ML IV ONE (18:30)
[2021-03-19] MEDS ORDERED: ZOLPIDEM TARTRATE 10 MG TAB PO PRN (18:30)
[2021-03-19] MEDS: METRONIDAZOLE 500 MG TAB PO SCH ×2 (18:40→21:51)
[2021-03-19] MEDS ORDERED: LISINOPRIL-HCT1 EAC2 MT (20:10)
[2021-03-19] MEDS ORDERED: HUMIRA PEN40 MG/0.8 SQ (20:10)
[2021-03-19 20:36] VITALS: BP 149/70
[2021-03-19] MEDS ORDERED: DEXTROSE 50% SYRINGE 50 ML IV PRN (20:45)
[2021-03-19] MEDS ORDERED: HYDRALAZINE HCL 20 MG/ML VIAL IV PRN (20:45)
[2021-03-19 21:00] VITALS: BP 149/70
[2021-03-19] MEDS: INSULIN LISPRO 100 UNIT/1 ML 3ML VIAL SQ SCH (22:14)
[2021-03-20] VITALS (13 sets, daily range): BP systolic 91–128; BP diastolic 59–82
[2021-03-20 05:21] LABS: ANION GAP 11.8 mmol/L (8-16); CALCIUM 8.4 mg/dL (8.4-10.2); CREATININE, SERUM 0.56 mg/dL (0.72-1.25); POTASSIUM 3.8 mmol/L (3.5-5.1)
[2021-03-20 05:27] LABS: BASOPHILS % 0.2 % (0.0-1.0); EOSINOPHILS # (AUTO) 0.1 (0.0-0.4); EOSINOPHILS % 0.4 % (0.0-6.0); HEMATOCRIT 37.5 % (38.2-49.6); LYMPHOCYTES # (AUTO) 1.4 (1.0-3.2); LYMPHOCYTES % 7.9 % (18.0-39.1); MEAN CORPUSCULAR HEMOGLOBIN 31.1 pg (28-32); MEAN CORPUSCULAR HGB CONC 33.9 g/dL (31-35); MEAN CORPUSCULAR VOLUME 91.9 fL (81-99); MONOCYTES # (AUTO) 1.4 (0.2-0.8); MONOCYTES % 8.4 % (4.4-11.3); NEUTROPHILS # (AUTO) 14.1 (2.1-6.9); NEUTROPHILS % 82.6 % (38.7-80.0); PLATELET COUNT 301 x10e3/uL (140-360); RED BLOOD COUNT 4.08 x10e6/uL (4.3-5.7)
[2021-03-20 06:00] LABS: HEMOGLOBIN 12.7 g/dL (14.0-18.0)
[2021-03-20] MEDS: SODIUM CHLORIDE 0.9% 1000ML 1,000 ML IV SCH ×3 (06:11→19:00)
[2021-03-20] MEDS: INSULIN LISPRO 100 UNIT/1 ML 3ML VIAL SQ SCH ×4 (07:30→21:54)
[2021-03-20] MEDS ORDERED: BUPIVACAINE HCL 0.5% INJ 30 ML VIAL INJ ONE (07:48)
[2021-03-20] MEDS ORDERED: ONDANSETRON HCL INJ 2MG/ML 2ML 2 MG/ML VIAL IV PRN (09:00)
[2021-03-20] MEDS: METRONIDAZOLE 500 MG TAB PO SCH ×4 (09:00→21:00)
[2021-03-20] MEDS: CEFEPIME 1 GM in SODIUM CHLORIDE 0.9% 50ML 50 ML IV SCH ×3 (09:00→21:49)
[2021-03-20] MEDS ORDERED: SODIUM CHLORIDE 0.9% 250ML IRRIG IR SCH (09:00)
[2021-03-20] MEDS ORDERED: FENTANYL CITRATE/PF 100MCG/2 ML INJ ONE (12:48)
[2021-03-20] MEDS ORDERED: MIDAZOLAM HCL 2 MG/2 ML VIAL ONE (12:48)
[2021-03-21] VITALS (8 sets, daily range): BP systolic 101–118; BP diastolic 61–86
[2021-03-21] MEDS: HYDROMORPHONE 1MG/1ML INJ IV PRN ×5 (01:53→23:43)
[2021-03-21] MEDS: SODIUM CHLORIDE 0.9% 1000ML 1,000 ML IV SCH ×2 (04:03→15:00)
[2021-03-21 06:08] LABS: BASOPHILS % 0.2 % (0.0-1.0); EOSINOPHILS # (AUTO) 0.1 (0.0-0.4); HEMATOCRIT 33.8 % (38.2-49.6); HEMOGLOBIN 11.1 g/dL (14.0-18.0); LYMPHOCYTES % 9.4 % (18.0-39.1); MEAN CORPUSCULAR HEMOGLOBIN 30.7 pg (28-32); MEAN CORPUSCULAR HGB CONC 32.8 g/dL (31-35); MEAN CORPUSCULAR VOLUME 93.6 fL (81-99); MONOCYTES # (AUTO) 1.1 (0.2-0.8); MONOCYTES % 10.3 % (4.4-11.3); NEUTROPHILS # (AUTO) 8.1 (2.1-6.9); NEUTROPHILS % 78.5 % (38.7-80.0); PLATELET COUNT 254 x10e3/uL (140-360); RED BLOOD COUNT 3.61 x10e6/uL (4.3-5.7)
[2021-03-21 06:44] LABS: ANION GAP 10.2 mmol/L (8-16); CALCIUM 7.3 mg/dL (8.4-10.2); CREATININE, SERUM 0.51 mg/dL (0.72-1.25); POTASSIUM 3.2 mmol/L (3.5-5.1)
[2021-03-21] MEDS: INSULIN LISPRO 100 UNIT/1 ML 3ML VIAL SQ SCH ×4 (07:30→22:15)
[2021-03-21 07:37] LABS: MAGNESIUM 1.5 MG/DL (1.3-2.1); PHOSPHORUS 1.6 MG/DL (2.3-4.7)
[2021-03-21] MEDS: METRONIDAZOLE 500 MG TAB PO SCH ×4 (08:13→22:15)
[2021-03-21] MEDS: SIMVASTATIN 40 MG TAB PO SCH (08:13)
[2021-03-21] MEDS: CEFEPIME 1 GM in SODIUM CHLORIDE 0.9% 50ML 50 ML IV SCH ×2 (08:13→22:15)
[2021-03-21] MEDS ORDERED: POTASSIUM CHLORIDE 20 MEQ TAB CR PO ONE ×2 (11:45→18:00)
[2021-03-22] VITALS (9 sets, daily range): BP systolic 107–127; BP diastolic 66–90
[2021-03-22] MEDS: SODIUM CHLORIDE 0.9% 1000ML 1,000 ML IV SCH ×3 (01:04→21:06)
[2021-03-22 05:31] LABS: BASOPHILS % 0.1 % (0.0-1.0); EOSINOPHILS # (AUTO) 0.1 (0.0-0.4); EOSINOPHILS % 1.1 % (0.0-6.0); HEMOGLOBIN 12.2 g/dL (14.0-18.0); LYMPHOCYTES # (AUTO) 1.3 (1.0-3.2); LYMPHOCYTES % 12.8 % (18.0-39.1); MEAN CORPUSCULAR VOLUME 94.1 fL (81-99); MONOCYTES # (AUTO) 1.4 (0.2-0.8); MONOCYTES % 13.8 % (4.4-11.3); NEUTROPHILS # (AUTO) 7.4 (2.1-6.9); NEUTROPHILS % 71.6 % (38.7-80.0); PLATELET COUNT 259 x10e3/uL (140-360); RED BLOOD COUNT 3.93 x10e6/uL (4.3-5.7); RED CELL DISTRIBUTION WIDTH 12.8 % (11.7-14.4)
[2021-03-22 06:19] LABS: ANION GAP 7.7 mmol/L (8-16); CALCIUM 7.4 mg/dL (8.4-10.2); CREATININE, SERUM 0.53 mg/dL (0.72-1.25); MAGNESIUM 1.6 MG/DL (1.3-2.1); PHOSPHORUS 1.7 MG/DL (2.3-4.7)
[2021-03-22 06:21] LABS: POTASSIUM 2.7 mmol/L (3.5-5.1)
[2021-03-22] MEDS: INSULIN LISPRO 100 UNIT/1 ML 3ML VIAL SQ SCH ×3 (07:30→21:06)
[2021-03-22] MEDS ORDERED: POTASSIUM CHLORIDE 20 MEQ TAB CR PO ONE (09:30)
[2021-03-22] MEDS: HYDROMORPHONE 1MG/1ML INJ IV PRN ×2 (10:15→14:00)
[2021-03-22] MEDS: SIMVASTATIN 40 MG TAB PO SCH (10:17)
[2021-03-22] MEDS: CEFEPIME 1 GM in SODIUM CHLORIDE 0.9% 50ML 50 ML IV SCH ×2 (10:17→21:05)
[2021-03-22] MEDS: METRONIDAZOLE 500 MG TAB PO SCH ×4 (10:17→21:06)
[2021-03-23] VITALS (8 sets, daily range): BP systolic 104–131; BP diastolic 73–86
[2021-03-23 06:07] LABS: BASOPHILS % 0.1 % (0.0-1.0); EOSINOPHILS # (AUTO) 0.2 (0.0-0.4); EOSINOPHILS % 2.5 % (0.0-6.0); HEMATOCRIT 32.8 % (38.2-49.6); HEMOGLOBIN 10.6 g/dL (14.0-18.0); LYMPHOCYTES # (AUTO) 1.3 (1.0-3.2); LYMPHOCYTES % 13.9 % (18.0-39.1); MEAN CORPUSCULAR HGB CONC 32.3 g/dL (31-35); MEAN CORPUSCULAR VOLUME 95.9 fL (81-99); MONOCYTES # (AUTO) 1.3 (0.2-0.8); MONOCYTES % 14.2 % (4.4-11.3); NEUTROPHILS # (AUTO) 6.3 (2.1-6.9); NEUTROPHILS % 68.9 % (38.7-80.0); PLATELET COUNT 243 x10e3/uL (140-360); RED BLOOD COUNT 3.42 x10e6/uL (4.3-5.7); RED CELL DISTRIBUTION WIDTH 12.8 % (11.7-14.4)
[2021-03-23 06:57] LABS: ANION GAP 7.5 mmol/L (8-16); CALCIUM 7.3 mg/dL (8.4-10.2); CREATININE, SERUM 0.5 mg/dL (0.72-1.25); MAGNESIUM 1.5 MG/DL (1.3-2.1); PHOSPHORUS 1.4 MG/DL (2.3-4.7)
[2021-03-23 07:13] LABS: POTASSIUM 2.5 mmol/L (3.5-5.1)
[2021-03-23] MEDS: INSULIN LISPRO 100 UNIT/1 ML 3ML VIAL SQ SCH ×4 (07:30→20:38)
[2021-03-23] MEDS: METRONIDAZOLE 500 MG TAB PO SCH ×4 (08:24→20:36)
[2021-03-23] MEDS: SIMVASTATIN 40 MG TAB PO SCH (08:24)
[2021-03-23] MEDS: SODIUM CHLORIDE 0.9% 1000ML 1,000 ML IV SCH ×2 (08:24→16:16)
[2021-03-23] MEDS: CEFEPIME 1 GM in SODIUM CHLORIDE 0.9% 50ML 50 ML IV SCH ×2 (08:24→20:36)
[2021-03-23] MEDS ORDERED: POTASSIUM CHLORIDE 20MEQ/100ML 100 ML IV ONE (08:30)
[2021-03-23] MEDS ORDERED: POTASSIUM CHLORIDE 20 MEQ TAB CR PO ONE ×2 (08:30→12:30)
[2021-03-23] MEDS ORDERED: LORAZEPAM INJ 2 MG/ML VIAL IV PRN (11:45)
[2021-03-23] MEDS: THIAMINE HCL 100 MG TAB PO SCH (12:25)
[2021-03-23] MEDS ORDERED: FOLIC ACID 1 MG TAB PO ONE (12:30)
[2021-03-23] MEDS ORDERED: LACTOBACILLUS ACIDOPHILUS CAPSULE PO ONE (12:30)
[2021-03-23] MEDS ORDERED: CYANOCOBALAMIN INJ 1,000 MCG/ML VIAL IM ONE (12:30)
[2021-03-23] MEDS: LACTOBACILLUS ACIDOPHILUS CAPSULE PO SCH (16:51)
[2021-03-23] MEDS: CHLORDIAZEPOXIDE/CLIDINIUM 1 CAP PO SCH ×2 (16:51→20:36)
[2021-03-23] MEDS: HYDROMORPHONE 1MG/1ML INJ IV PRN (20:50)
[2021-03-24] VITALS (8 sets, daily range): BP systolic 134–154; BP diastolic 68–95
[2021-03-24] MEDS: SODIUM CHLORIDE 0.9% 1000ML 1,000 ML IV SCH (02:34)
[2021-03-24 05:22] LABS: BASOPHILS % 0.1 % (0.0-1.0); EOSINOPHILS # (AUTO) 0.3 (0.0-0.4); HEMOGLOBIN 10.7 g/dL (14.0-18.0); LYMPHOCYTES # (AUTO) 1.3 (1.0-3.2); MEAN CORPUSCULAR HEMOGLOBIN 31.1 pg (28-32); MEAN CORPUSCULAR HGB CONC 33.4 g/dL (31-35); MONOCYTES # (AUTO) 1.3 (0.2-0.8); MONOCYTES % 14.8 % (4.4-11.3); NEUTROPHILS # (AUTO) 5.7 (2.1-6.9); NEUTROPHILS % 66.8 % (38.7-80.0); PLATELET COUNT 245 x10e3/uL (140-360); RED BLOOD COUNT 3.44 x10e6/uL (4.3-5.7); RED CELL DISTRIBUTION WIDTH 12.6 % (11.7-14.4)
[2021-03-24 05:38] LABS: ANION GAP 7.5 mmol/L (8-16); BLOOD UREA NITROGEN < 5 mg/dL (7-26); CALCIUM 7.3 mg/dL (8.4-10.2); CARBON DIOXIDE 29 mmol/L (22-29); CHLORIDE 103 mmol/L (98-107); CREATININE, SERUM 0.53 mg/dL (0.72-1.25); EST GLOMERULAR FILTRATION RATE 156 ML/MIN (60-); GLUCOSE 87 mg/dL (74-118); SODIUM 137 mmol/L (136-145)
[2021-03-24 05:43] LABS: BUN/CREATININE RATIO 9 (6-25)
[2021-03-24 05:44] LABS: POTASSIUM 2.5 mmol/L (3.5-5.1)
[2021-03-24] MEDS ORDERED: POTASSIUM CHLORIDE 20MEQ/100ML 100 ML IV ONE ×2 (06:50→12:00)
[2021-03-24] MEDS ORDERED: POTASSIUM CHLORIDE 10MEQ EA PO ONE (06:50)
[2021-03-24] MEDS: INSULIN LISPRO 100 UNIT/1 ML 3ML VIAL SQ SCH ×4 (07:30→21:20)
[2021-03-24] MEDS: METRONIDAZOLE 500 MG TAB PO SCH ×4 (08:31→21:05)
[2021-03-24] MEDS: CHLORDIAZEPOXIDE/CLIDINIUM 1 CAP PO SCH ×4 (08:31→21:05)
[2021-03-24] MEDS: SIMVASTATIN 40 MG TAB PO SCH (08:31)
[2021-03-24] MEDS: LACTOBACILLUS ACIDOPHILUS CAPSULE PO SCH ×2 (08:31→16:11)
[2021-03-24] MEDS: FOLIC ACID 1 MG TAB PO SCH (08:31)
[2021-03-24] MEDS: THIAMINE HCL 100 MG TAB PO SCH (08:31)
[2021-03-24] MEDS: HYDROMORPHONE 1MG/1ML INJ IV PRN ×2 (08:34→18:49)
[2021-03-24] MEDS: CYANOCOBALAMIN INJ 1,000 MCG/ML VIAL IM SCH (08:40)
[2021-03-24] MEDS ORDERED: POTASSIUM CHLORIDE 20 MEQ TAB CR PO ONE (10:00)
[2021-03-24] MEDS: CEFEPIME 1 GM in SODIUM CHLORIDE 0.9% 50ML 50 ML IV SCH ×2 (11:12→21:04)
[2021-03-24] MEDS ORDERED: SODIUM CHLORIDE 0.9% 250ML 250 ML ONE ×2 (12:33→16:16)
[2021-03-25] VITALS (9 sets, daily range): BP systolic 100–139; BP diastolic 69–91
[2021-03-25] MEDS: HYDROMORPHONE 1MG/1ML INJ IV PRN ×3 (00:27→18:47)
[2021-03-25] MEDS: INSULIN LISPRO 100 UNIT/1 ML 3ML VIAL SQ SCH ×4 (07:30→20:00)
[2021-03-25] MEDS: CEFEPIME 1 GM in SODIUM CHLORIDE 0.9% 50ML 50 ML IV SCH ×2 (09:00→20:20)
[2021-03-25] MEDS: CYANOCOBALAMIN INJ 1,000 MCG/ML VIAL IM SCH (09:00)
[2021-03-25] MEDS: THIAMINE HCL 100 MG TAB PO SCH (09:00)
[2021-03-25] MEDS: METRONIDAZOLE 500 MG TAB PO SCH ×4 (09:00→20:20)
[2021-03-25] MEDS: FOLIC ACID 1 MG TAB PO SCH (09:00)
[2021-03-25] MEDS: SIMVASTATIN 40 MG TAB PO SCH (09:00)
[2021-03-25] MEDS: LACTOBACILLUS ACIDOPHILUS CAPSULE PO SCH ×2 (09:00→18:00)
[2021-03-25] MEDS: CHLORDIAZEPOXIDE/CLIDINIUM 1 CAP PO SCH ×3 (09:30→20:20)
[2021-03-25] MEDS ORDERED: CHLORDIAZEPOXIDE/CLIDINIUM 1 CAP PO SCH (10:00)
[2021-03-25 10:27] LABS: BASOPHILS % 0.4 % (0.0-1.0); EOSINOPHILS # (AUTO) 0.2 (0.0-0.4); EOSINOPHILS % 1.6 % (0.0-6.0); HEMATOCRIT 38.7 % (38.2-49.6); HEMOGLOBIN 13.4 g/dL (14.0-18.0); LYMPHOCYTES # (AUTO) 1.5 (1.0-3.2); LYMPHOCYTES % 13.7 % (18.0-39.1); MEAN CORPUSCULAR HEMOGLOBIN 31.3 pg (28-32); MEAN CORPUSCULAR HGB CONC 34.6 g/dL (31-35); MEAN CORPUSCULAR VOLUME 90.4 fL (81-99); MONOCYTES # (AUTO) 1.7 (0.2-0.8); NEUTROPHILS # (AUTO) 7.7 (2.1-6.9); NEUTROPHILS % 68.7 % (38.7-80.0); PLATELET COUNT 285 x10e3/uL (140-360); RED BLOOD COUNT 4.28 x10e6/uL (4.3-5.7); RED CELL DISTRIBUTION WIDTH 12.5 % (11.7-14.4)
[2021-03-25 10:59] LABS: ANION GAP 9.9 mmol/L (8-16); BLOOD UREA NITROGEN < 5 mg/dL (7-26); CALCIUM 8.1 mg/dL (8.4-10.2); CARBON DIOXIDE 28 mmol/L (22-29); CHLORIDE 99 mmol/L (98-107); CREATININE, SERUM 0.58 mg/dL (0.72-1.25); EST GLOMERULAR FILTRATION RATE 141 ML/MIN (60-); GLUCOSE 135 mg/dL (74-118); SODIUM 134 mmol/L (136-145)
[2021-03-25 11:05] LABS: BUN/CREATININE RATIO 9 (6-25)
[2021-03-25 11:07] LABS: POTASSIUM 2.9 mmol/L (3.5-5.1)
[2021-03-25] MEDS ORDERED: POTASSIUM CHLORIDE 20 MEQ TAB CR PO STA (11:50)
[2021-03-25] MEDS ORDERED: POTASSIUM CHLORIDE 20 MEQ TAB CR PO ONE (14:00)
[2021-03-26] VITALS (7 sets, daily range): BP systolic 125–140; BP diastolic 80–91
[2021-03-26] MEDS: HYDROMORPHONE 1MG/1ML INJ IV PRN ×3 (01:53→22:54)
[2021-03-26] MEDS: ACETAMINOPHEN 325 MG TAB PO PRN ×2 (06:48→16:39)
[2021-03-26] MEDS: INSULIN LISPRO 100 UNIT/1 ML 3ML VIAL SQ SCH ×4 (07:30→20:32)
[2021-03-26 08:07] LABS: BASOPHILS % 0.3 % (0.0-1.0); EOSINOPHILS # (AUTO) 0.2 (0.0-0.4); EOSINOPHILS % 1.9 % (0.0-6.0); HEMATOCRIT 36.2 % (38.2-49.6); HEMOGLOBIN 12.3 g/dL (14.0-18.0); LYMPHOCYTES # (AUTO) 1.7 (1.0-3.2); LYMPHOCYTES % 17.1 % (18.0-39.1); MEAN CORPUSCULAR HEMOGLOBIN 30.7 pg (28-32); MEAN CORPUSCULAR VOLUME 90.3 fL (81-99); MONOCYTES # (AUTO) 1.9 (0.2-0.8); MONOCYTES % 19.1 % (4.4-11.3); NEUTROPHILS # (AUTO) 6.1 (2.1-6.9); PLATELET COUNT 240 x10e3/uL (140-360); RED BLOOD COUNT 4.01 x10e6/uL (4.3-5.7); RED CELL DISTRIBUTION WIDTH 12.7 % (11.7-14.4)
[2021-03-26 08:28] LABS: ANION GAP 7.1 mmol/L (8-16); BLOOD UREA NITROGEN < 5 mg/dL (7-26); CARBON DIOXIDE 32 mmol/L (22-29); CHLORIDE 100 mmol/L (98-107); EST GLOMERULAR FILTRATION RATE 113 ML/MIN (60-); GLUCOSE 96 mg/dL (74-118); POTASSIUM 4.1 mmol/L (3.5-5.1); SODIUM 135 mmol/L (136-145)
[2021-03-26 08:29] LABS: BUN/CREATININE RATIO 7 (6-25)
[2021-03-26] MEDS: THIAMINE HCL 100 MG TAB PO SCH (09:07)
[2021-03-26] MEDS: METRONIDAZOLE 500 MG TAB PO SCH ×3 (09:07→16:24)
[2021-03-26] MEDS: CHLORDIAZEPOXIDE/CLIDINIUM 1 CAP PO SCH ×3 (09:07→16:24)
[2021-03-26] MEDS: FOLIC ACID 1 MG TAB PO SCH (09:08)
[2021-03-26] MEDS: SIMVASTATIN 40 MG TAB PO SCH (09:08)
[2021-03-26] MEDS: LACTOBACILLUS ACIDOPHILUS CAPSULE PO SCH ×2 (09:08→16:24)
[2021-03-26] MEDS: CEFEPIME 1 GM in SODIUM CHLORIDE 0.9% 50ML 50 ML IV SCH ×2 (09:09→20:32)
[2021-03-26] MEDS: CYANOCOBALAMIN INJ 1,000 MCG/ML VIAL IM SCH (09:09)
[2021-03-26] MEDS ORDERED: SODIUM CHLORIDE 0.9% 50ML 50 ML ONE (20:51)
[2021-03-27] VITALS (8 sets, daily range): BP systolic 114–124; BP diastolic 76–90
[2021-03-27] MEDS: ACETAMINOPHEN 325 MG TAB PO PRN (01:02)
[2021-03-27 05:14] LABS: BASOPHILS % 0.3 % (0.0-1.0); EOSINOPHILS # (AUTO) 0.2 (0.0-0.4); EOSINOPHILS % 2.6 % (0.0-6.0); HEMOGLOBIN 12.3 g/dL (14.0-18.0); LYMPHOCYTES # (AUTO) 1.6 (1.0-3.2); LYMPHOCYTES % 18.3 % (18.0-39.1); MEAN CORPUSCULAR HEMOGLOBIN 31.7 pg (28-32); MEAN CORPUSCULAR HGB CONC 35.1 g/dL (31-35); MEAN CORPUSCULAR VOLUME 90.2 fL (81-99); MONOCYTES # (AUTO) 1.7 (0.2-0.8); MONOCYTES % 18.6 % (4.4-11.3); NEUTROPHILS # (AUTO) 5.3 (2.1-6.9); NEUTROPHILS % 59.6 % (38.7-80.0); PLATELET COUNT 229 x10e3/uL (140-360); RED BLOOD COUNT 3.88 x10e6/uL (4.3-5.7); RED CELL DISTRIBUTION WIDTH 12.6 % (11.7-14.4)
[2021-03-27 05:42] LABS: ANION GAP 9.5 mmol/L (8-16); BLOOD UREA NITROGEN < 5 mg/dL (7-26); CALCIUM 7.7 mg/dL (8.4-10.2); CARBON DIOXIDE 29 mmol/L (22-29); CHLORIDE 101 mmol/L (98-107); CREATININE, SERUM 0.61 mg/dL (0.72-1.25); EST GLOMERULAR FILTRATION RATE 133 ML/MIN (60-); GLUCOSE 93 mg/dL (74-118); SODIUM 137 mmol/L (136-145)
[2021-03-27 06:00] LABS: BUN/CREATININE RATIO 8 (6-25)
[2021-03-27 06:03] LABS: POTASSIUM 2.5 mmol/L (3.5-5.1)
[2021-03-27] MEDS: HYDROMORPHONE 1MG/1ML INJ IV PRN (06:44)
[2021-03-27] MEDS ORDERED: POTASSIUM CHLORIDE 20 MEQ TAB CR PO ONE ×2 (06:45→17:15)
[2021-03-27] MEDS: INSULIN LISPRO 100 UNIT/1 ML 3ML VIAL SQ SCH ×4 (07:29→21:00)
[2021-03-27] MEDS: SIMVASTATIN 40 MG TAB PO SCH (08:04)
[2021-03-27] MEDS: FOLIC ACID 1 MG TAB PO SCH (08:04)
[2021-03-27] MEDS: CYANOCOBALAMIN INJ 1,000 MCG/ML VIAL IM SCH (08:04)
[2021-03-27] MEDS: CHLORDIAZEPOXIDE/CLIDINIUM 1 CAP PO SCH ×2 (08:04→17:02)
[2021-03-27] MEDS: CEFEPIME 1 GM in SODIUM CHLORIDE 0.9% 50ML 50 ML IV SCH ×2 (08:04→21:07)
[2021-03-27] MEDS: THIAMINE HCL 100 MG TAB PO SCH (08:04)
[2021-03-27] MEDS: LACTOBACILLUS ACIDOPHILUS CAPSULE PO SCH ×2 (08:04→17:02)
[2021-03-28] VITALS (8 sets, daily range): BP systolic 102–136; BP diastolic 72–91
[2021-03-28 05:03] LABS: BASOPHILS % 0.2 % (0.0-1.0); EOSINOPHILS # (AUTO) 0.3 (0.0-0.4); EOSINOPHILS % 3.1 % (0.0-6.0); HEMATOCRIT 34.8 % (38.2-49.6); HEMOGLOBIN 11.5 g/dL (14.0-18.0); LYMPHOCYTES # (AUTO) 1.7 (1.0-3.2); LYMPHOCYTES % 20.1 % (18.0-39.1); MEAN CORPUSCULAR HEMOGLOBIN 30.7 pg (28-32); MEAN CORPUSCULAR VOLUME 92.8 fL (81-99); MONOCYTES # (AUTO) 1.4 (0.2-0.8); MONOCYTES % 16.7 % (4.4-11.3); NEUTROPHILS # (AUTO) 5.1 (2.1-6.9); NEUTROPHILS % 59.4 % (38.7-80.0); PLATELET COUNT 236 x10e3/uL (140-360); RED BLOOD COUNT 3.75 x10e6/uL (4.3-5.7); RED CELL DISTRIBUTION WIDTH 12.8 % (11.7-14.4)
[2021-03-28 05:34] LABS: ANION GAP 13.7 mmol/L (8-16); BLOOD UREA NITROGEN < 5 mg/dL (7-26); CALCIUM 7.7 mg/dL (8.4-10.2); CARBON DIOXIDE 24 mmol/L (22-29); CHLORIDE 102 mmol/L (98-107); EST GLOMERULAR FILTRATION RATE 135 ML/MIN (60-); GLUCOSE 76 mg/dL (74-118); MAGNESIUM 1.2 MG/DL (1.3-2.1); SODIUM 137 mmol/L (136-145)
[2021-03-28 05:46] LABS: BUN/CREATININE RATIO 8 (6-25); POTASSIUM 2.7 mmol/L (3.5-5.1)
[2021-03-28] MEDS ORDERED: POTASSIUM CHLORIDE 20 MEQ TAB CR PO STA (05:52)
[2021-03-28] MEDS ORDERED: MAGNESIUM SULF 1GRAM/DEXTROSE 100 ML IV ONE ×2 (06:00→15:45)
[2021-03-28] MEDS: INSULIN LISPRO 100 UNIT/1 ML 3ML VIAL SQ SCH ×4 (07:30→20:45)
[2021-03-28] MEDS: CYANOCOBALAMIN INJ 1,000 MCG/ML VIAL IM SCH (08:04)
[2021-03-28] MEDS: THIAMINE HCL 100 MG TAB PO SCH (08:04)
[2021-03-28] MEDS: FOLIC ACID 1 MG TAB PO SCH (08:04)
[2021-03-28] MEDS: SIMVASTATIN 40 MG TAB PO SCH (08:04)
[2021-03-28] MEDS: LACTOBACILLUS ACIDOPHILUS CAPSULE PO SCH ×2 (08:04→16:11)
[2021-03-28] MEDS: CHLORDIAZEPOXIDE/CLIDINIUM 1 CAP PO SCH ×2 (08:04→16:11)
[2021-03-28] MEDS: CEFEPIME 1 GM in SODIUM CHLORIDE 0.9% 50ML 50 ML IV SCH ×2 (09:56→20:26)
[2021-03-28] MEDS ORDERED: ONDANSETRON HCL 4 MG ORAL DISINTEGRATING TAB PO PRN (12:30)
[2021-03-28 14:39] LABS: CALCIUM 8.1 mg/dL (8.4-10.2); CREATININE, SERUM 0.66 mg/dL (0.72-1.25)
[2021-03-28] MEDS ORDERED: POTASSIUM CHLORIDE 20 MEQ TAB CR PO ONE (15:15)
[2021-03-29 00:11] VITALS: BP 112/80
[2021-03-29 04:57] VITALS: BP 116/71
[2021-03-29 05:02] LABS: BASOPHILS % 0.2 % (0.0-1.0); EOSINOPHILS # (AUTO) 0.3 (0.0-0.4); EOSINOPHILS % 2.7 % (0.0-6.0); HEMATOCRIT 34.1 % (38.2-49.6); HEMOGLOBIN 11.3 g/dL (14.0-18.0); LYMPHOCYTES # (AUTO) 1.9 (1.0-3.2); MEAN CORPUSCULAR HEMOGLOBIN 30.8 pg (28-32); MEAN CORPUSCULAR HGB CONC 33.1 g/dL (31-35); MEAN CORPUSCULAR VOLUME 92.9 fL (81-99); MONOCYTES # (AUTO) 1.4 (0.2-0.8); MONOCYTES % 13.6 % (4.4-11.3); NEUTROPHILS # (AUTO) 6.5 (2.1-6.9); PLATELET COUNT 224 x10e3/uL (140-360); RED BLOOD COUNT 3.67 x10e6/uL (4.3-5.7); RED CELL DISTRIBUTION WIDTH 12.8 % (11.7-14.4)
[2021-03-29 05:53] LABS: ANION GAP 12.9 mmol/L (8-16); CALCIUM 7.4 mg/dL (8.4-10.2); CREATININE, SERUM 0.68 mg/dL (0.72-1.25); MAGNESIUM 1.5 MG/DL (1.3-2.1); PHOSPHORUS 1.9 MG/DL (2.3-4.7)
[2021-03-29 06:02] LABS: POTASSIUM 2.9 mmol/L (3.5-5.1)
[2021-03-29] MEDS ORDERED: POTASSIUM CHLORIDE 20 MEQ TAB CR PO ONE (06:45)
[2021-03-29] MEDS ORDERED: MAGNESIUM SULF 1GRAM/DEXTROSE 100 ML IV ONE (06:45)
[2021-03-29] MEDS: INSULIN LISPRO 100 UNIT/1 ML 3ML VIAL SQ SCH ×2 (07:30→11:30)
[2021-03-29 08:00] VITALS: BP 116/71
[2021-03-29 08:05] VITALS: BP 103/92
[2021-03-29] MEDS: FOLIC ACID 1 MG TAB PO SCH (09:00)
[2021-03-29] MEDS: SIMVASTATIN 40 MG TAB PO SCH (09:00)
[2021-03-29] MEDS: CYANOCOBALAMIN INJ 1,000 MCG/ML VIAL IM SCH (09:00)
[2021-03-29] MEDS: LACTOBACILLUS ACIDOPHILUS CAPSULE PO SCH ×2 (09:00→15:52)
[2021-03-29] MEDS: CEFEPIME 1 GM in SODIUM CHLORIDE 0.9% 50ML 50 ML IV SCH (09:00)
[2021-03-29] MEDS: THIAMINE HCL 100 MG TAB PO SCH (09:00)
[2021-03-29] MEDS: CHLORDIAZEPOXIDE/CLIDINIUM 1 CAP PO SCH ×2 (09:00→15:52)
[2021-03-29] MEDS ORDERED: POTASSIUM CHLO20 ME1 PO (10:42)
[2021-03-29 11:52] VITALS: BP 111/79
[2021-03-29 15:00] VITALS: BP 127/85
== END 2021-03-29 16:24 | disposition home or self-care (01) | DRG 336 ==
LOC: ER 13:10 → ERHOLD 14:55 → MED/SURG2 16:23
PROVIDERS: ADMIT Internal Medicine; ATTEND Internal Medicine
PROC: 0DN80ZZ Release Small Intestine, Open Approach (ICD-10-PCS; 2021-03-20)
PROC: 0YU50JZ Supplement Right Inguinal Region with Synthetic Substitute, Open Approach (ICD-10-PCS; principal; 2021-03-20 11:00)
DX: K40.30 Unilateral inguinal hernia, with obstruction, without gangrene, not specified as recurrent (principal); K50.90 Crohn's disease, unspecified, without complications; E87.1 Hypo-osmolality and hyponatremia; E87.6 Hypokalemia; E78.5 Hyperlipidemia, unspecified; I10 Essential (primary) hypertension; K76.9 Liver disease, unspecified; Z20.822 Contact with and (suspected) exposure to COVID-19; F10.20 Alcohol dependence, uncomplicated; R19.7 Diarrhea, unspecified; Z87.891 Personal history of nicotine dependence; E11.69 Type 2 diabetes mellitus with other specified complication; Z88.0 Allergy status to penicillin
CPT/HCPCS: 36415; 74176; 80048; 80053; 82948; 83605; 83735; 84100; 84132; 84484; 85025; 87040; 87493; 93005; 94799; 96361; 96372; 99284; C1781; J0330; J0692; J1100; J1170; J1885; J2001; J2250; J2270; J2405; J3010; J3411; J3420; J3475; J3480; J7030; J7050; J7121; J7799; U0002

== ENCOUNTER 2021-05-02 18:37 | Emergency (ER) | payer SELFPAY ==
[~2021-05-02] VITALS: Ht 165.1 cm; Wt 76.2 kg
[~2021-05-02 18:37] MED LIST changes: -DEXAMETHASONE SOD PHOS INJ 4 MG/ML SDV ONE; +HUMIRA PEN40 MG/0.8 SQ; -KETOROLAC TROMETHAMINE 30 MG/ML VIAL ONE; -LIDOCAINE HCL 2% LOCAL INJ 5 ML SDV VIAL INJ ONE; +LISINOPRIL-HCT1 EAC2 MT; -ONDANSETRON HCL INJ 2MG/ML 2ML 2 MG/ML VIAL ONE; +POTASSIUM CHLO20 ME1 PO; -POVIDONE IODINE 0.05% 0.05 % ML PO ONE; -PROPOFOL IV EMULSION 10 MG/ML 20 ML VIAL ONE; -ROCURONIUM BROMIDE 10 MG/ML 5ML VIAL IV ONE; -SEVOFLURANE INHAL SOLN 250 ML PEN BTL ONE; -SUCCINYLCHOLINE CHLORIDE 20 MG/ML 10ML VIAL ONE
[2021-05-02 19:09] LABS: BASOPHILS % 0.2 % (0.0-1.0); EOSINOPHILS % 0.2 % (0.0-6.0); HEMATOCRIT 37.1 % (38.2-49.6); HEMOGLOBIN 12.6 g/dL (14.0-18.0); LYMPHOCYTES # (AUTO) 0.8 (1.0-3.2); MEAN CORPUSCULAR HEMOGLOBIN 30.6 pg (28-32); MONOCYTES # (AUTO) 0.7 (0.2-0.8); MONOCYTES % 4.7 % (4.4-11.3); NEUTROPHILS # (AUTO) 13.4 (2.1-6.9); NEUTROPHILS % 88.4 % (38.7-80.0); PLATELET COUNT 330 x10e3/uL (140-360); RED BLOOD COUNT 4.12 x10e6/uL (4.3-5.7); RED CELL DISTRIBUTION WIDTH 13.5 % (11.7-14.4)
[2021-05-02 19:25] LABS: ALBUMIN 3.1 g/dL (3.5-5.0); ALBUMIN/GLOBULIN RATIO 0.7 (0.8-2.0); ANION GAP 19.2 mmol/L (8-16); CALCIUM 8.9 mg/dL (8.4-10.2); CREATININE, SERUM 0.78 mg/dL (0.72-1.25); POTASSIUM 4.2 mmol/L (3.5-5.1)
[2021-05-02] MEDS ORDERED: SODIUM CHLORIDE 0.9% 1000ML 1,000 ML IV SCH (20:45)
[2021-05-02] MEDS ORDERED: SODIUM CHLORIDE 0.9% 1000ML 1,000 ML ONE (20:49)
== END 2021-05-02 21:46 | disposition home or self-care (01) ==
LOC: ER 18:45
DX: U07.1 COVID-19 (principal); R07.89 Other chest pain; R06.02 Shortness of breath; R53.1 Weakness; E11.65 Type 2 diabetes mellitus with hyperglycemia; I10 Essential (primary) hypertension; E78.5 Hyperlipidemia, unspecified; Z87.19 Personal history of other diseases of the digestive system
CPT/HCPCS: 36415; 71045; 80053; 83690; 83880; 84484; 85025; 93005; 99284; J7030; U0002